=== PATIENT | female | born 1960 | race Caucasian/White ===

== ENCOUNTER 2023-04-03 17:25 | Emergency (ER) | payer MEDICAID ==
[~2023-04-03] VITALS: Ht 167.6 cm; Wt 72.6 kg
[2023-04-03 18:07] VITALS: BP 128/67; TEMP 98.1; O2SAT 98
[2023-04-03] MEDS ORDERED: BUPR300T52 PO (18:51)
== END 2023-04-03 18:55 | disposition home or self-care (01) ==
LOC: ER 17:29
DX: F32.A Depression, unspecified (principal); Z76.0 Encounter for issue of repeat prescription; Z79.899 Other long term (current) drug therapy